=== PATIENT | female | born 1930 | race Caucasian/White ===

== ENCOUNTER 2017-01-04 17:08 | Emergency (ER) | payer OTHER, BC ==
[~2017-01-04] VITALS: Ht 154.9 cm; Wt 85.9 kg
[~2017-01-04 17:08] MED LIST: ACYCLOVIR400 MG PO; ACYCLOVIR800 MG PO; ADVAIR 250/501 DISK IH; ALBUTEROL2.5 MG/3 M IH; Advair 250/50 Diskus IH; Aspirin E.C. PO; BENICAR40 MG PO; Benicar HCT 40/25 PO; CICLESONIDE; CYANOCOBALAM1000 MCG PO; Cardizem PO; Coumadin,Jantoven PO; DILTIAZEM ER90 MG PO; Decadron PO; ELIQUIS2.5 MG PO; FUROSEMIDE20 MG PO; Fish Oil PO; HYDROCHLOROTHIA25 MG PO; LATANOPROST2.5 ML BOTH EYES; LOVENOX30 MG/0.3 SC; Lasix PO; METRO CREAM 0.745 GM TP; MONTELUKAST SOD10 MG PO; OMNARIS12.5 GM BOTH NARES; OMNARIS12.5 GM IH; ONDANSETRON HCL4 MG PO; ONDANSETRON ODT4 MG PO; PANTOPRAZOLE SO40 MG PO; PEPCID20 MG PO; PERCOCET 5/31 TABLET PO; PROCHLORPERAZIN10 MG PO; PROVENTIL,2.5 MG/0.5 IH; PROZAC10 MG PO; PROZAC20 MG PO; Pyridoxine,Vitamin B PO; REVLIMID25 MG PO; Singulair PO; VENTOLIN HFA18 GM IH; VITAMIN B-6100 MG PO; Xalatan 0.005% Ophth; ZOFRAN ODT8 MG PO
[2017-01-04 17:42] LABS: BASOPHIL COUNT 0.1 K/uL (0-0.1); EOSINOPHIL (%) 1.3 % (0-5); EOSINOPHIL COUNT 0.1 K/uL (0-0.3); HEMATOCRIT 31.9 % (36.0-46.0); IMMATURE GRANULOCYTE (%) 1.3 % (0.0-0.7); IMMATURE GRANULOCYTE COUNT 0.1 K/uL; INSTRUMENT ABS NEUTROPHIL CT 3.3 K/uL; LYMPHOCYTE COUNT 0.6 K/uL (1.0-2.8); MCH 33.1 PG (29.0-34.0); MCHC 33.9 G/DL (30.0-36.0); MEAN PLAT.VOLUME 9.4 uM^3 (9.5-12.4); MONOCYTE (%) 10.5 % (3-12); MONOCYTE COUNT 0.5 K/uL (0-0.8); NEUTROPHIL (%) 72.8 % (45-76); NEUTROPHIL COUNT 3.3 K/uL (1.8-6.4); PLATELET COUNT 178 K/uL (156-360); RBC DIS.WIDTH-CV 14.1 % (11.8-14.6); RBC DIS.WIDTH-SD 49.8 % (39-53); RED BLOOD COUNT 3.26 M/uL (3.80-5.20); WHITE BLOOD COUNT 4.5 K/uL (4.1-10.2)
[2017-01-04 17:43] LABS: MCV 97.9 FL (83-99)
[2017-01-04 17:49] LABS: INTER. NORMALIZED RATIO 1.1; PROTHROMBIN TIME 12.5 SEC (10.2-12.9)
[2017-01-04 17:55] LABS: CHLORIDE 107 mEq/L (99-109); POTASSIUM 4.5 mEq/L (3.7-5.4); SODIUM 140 mEq/L (136-147)
[2017-01-04 17:57] LABS: GLUCOSE 97 mg/dL (70-99)
[2017-01-04 17:59] LABS: ANION GAP 9 MEQ/L (2-14); TOTAL BILIRUBIN 0.6 mg/dL (0.0-1.0)
[2017-01-04 18:01] LABS: ALKALINE PHOSPHATASE 96 IU/L (3-129); GFR ESTIMATE (CALCULATED) 41 mL/min/
[2017-01-04 18:02] LABS: UREA NITROGEN (BUN) 13 mg/dL (9-23)
[2017-01-04 18:08] LABS: TROP-I INTERPRETATION NEGATIVE; TROPONIN-I 0.02 ng/mL (0.0-0.30)
[2017-01-04 19:53] LABS: ADD MIUA? YES; BILIRUBIN NEGATIVE; BLOOD NEGATIVE; COLOR YELLOW ((YELLOW)); GLUCOSE (STRIP) NEGATIVE; KETONES 5; LEUKOCYTES NEGATIVE; NITRITE NEGATIVE; PROTEIN (STRIP) 100; SPECIFIC GRAVITY 1.019 (1.000-1.030)
[2017-01-04 20:37] LABS: BACTERIA 1+ /HPF; EPITHELIAL CELLS 3+ /HPF; HYALINE CASTS 30-40 /LPF; MUCUS TRACE /LPF; RED BLOOD CELLS 0-5 /HPF (0-5); UCUL ADDED? NO; WHITE BLOOD CELLS 0-5 /HPF (0-5)
[2017-01-04] MEDS ORDERED: REGLAN10 MG PO (22:02)
[2017-01-04 22:09] VITALS: BP 182/66
== END 2017-01-04 22:15 | disposition home or self-care (01) ==
LOC: EME 17:08
PROVIDERS: Emergency Medicine
DX: R51 Headache (principal); R11.0 Nausea; R53.1 Weakness; C90.00 Multiple myeloma not having achieved remission; J44.9 Chronic obstructive pulmonary disease, unspecified; J45.909 Unspecified asthma, uncomplicated; I12.9 Hypertensive chronic kidney disease with stage 1 through stage 4 chronic kidney disease, or unspecified chronic kidney disease; N18.9 Chronic kidney disease, unspecified; Z90.49 Acquired absence of other specified parts of digestive tract; Z87.891 Personal history of nicotine dependence; Z79.01 Long term (current) use of anticoagulants
CPT/HCPCS: 70450; 71020; 80053; 81003; 84484; 85025; 85610; 93005; 99281; 99285; J2405; J2765; J7040

== ENCOUNTER 2017-08-04 14:20 | Inpatient (IN) | payer OTHER, BC ==
[2017-08-04] VITALS (7 sets, daily range): BP systolic 174–196; BP diastolic 54–73
[~2017-08-04] VITALS: Ht 154.9 cm; Wt 87.6 kg
[~2017-08-04 14:20] MED LIST changes: +REGLAN10 MG PO
[2017-08-04 15:12] LABS: HEMATOCRIT 29.9 % (36.0-46.0); HEMOGLOBIN 9.9 G/DL (11.9-15.5); MCH 33.4 PG (29.0-34.0); MCHC 33.1 G/DL (30.0-36.0); PLATELET COUNT 134 K/uL (156-360); RBC DIS.WIDTH-CV 15.8 % (11.8-14.6); RBC DIS.WIDTH-SD 58.7 % (39-53); RED BLOOD COUNT 2.96 M/uL (3.80-5.20); WHITE BLOOD COUNT 11.1 K/uL (4.1-10.2)
[2017-08-04 15:19] LABS: ALBUMIN 3.4 g/dL (3.2-4.8); CHLORIDE 113 mEq/L (99-109); POTASSIUM 4.5 mEq/L (3.7-5.4); SODIUM 144 mEq/L (136-147)
[2017-08-04 15:21] LABS: GLUCOSE 97 mg/dL (70-99)
[2017-08-04 15:22] LABS: TOTAL PROTEIN 5.5 g/dL (6.4-8.3)
[2017-08-04 15:23] LABS: TOTAL BILIRUBIN 0.4 mg/dL (0.0-1.0)
[2017-08-04 15:26] LABS: ALKALINE PHOSPHATASE 99 IU/L (3-129); CREATININE 1.8 mg/dL (0.6-1.3); GFR ESTIMATE (CALCULATED) 28 mL/min/; UREA NITROGEN (BUN) 40 mg/dL (9-23)
[2017-08-04 15:27] LABS: AST (GOT) 47 IU/L (2-34)
[2017-08-04 15:28] LABS: ALT (GPT) 142 IU/L (3-49)
[2017-08-04 15:32] LABS: INTER. NORMALIZED RATIO 1.3; TROP-I INTERPRETATION NEGATIVE; TROPONIN-I 0.02 ng/mL (0.0-0.30)
[2017-08-04 15:34] LABS: PTT 23.9 SEC (25-37)
[2017-08-04] MEDS ORDERED: PROZAC40 MG PO (17:44)
[2017-08-04] MEDS ORDERED: REVLIMID25 MG PO (17:45)
[2017-08-04] MEDS ORDERED: DECADRON4 MG PO (17:47)
[2017-08-04] MEDS ORDERED: OLMESARTAN MEDO20 MG PO (17:49)
[2017-08-04] MEDS ORDERED: ZOFRAN ODT4 MG PO (17:53)
[2017-08-04] MEDS ORDERED: FLUOXETINE HCL40 MG PO (18:02)
[2017-08-04 20:55] LABS: TROP-I INTERPRETATION NEGATIVE; TROPONIN-I 0.03 ng/mL (0.0-0.30)
[2017-08-05] VITALS (24 sets, daily range): BP systolic 0–174; BP diastolic 0–72
[2017-08-05 02:16] LABS: TROP-I INTERPRETATION NEGATIVE; TROPONIN-I 0.02 ng/mL (0.0-0.30)
[2017-08-05 06:01] LABS: CHLORIDE 110 MEQ/L (99-109); CREATININE 2.1 MG/DL (0.6-1.3); GFR ESTIMATE (CALCULATED) 24 mL/min/; GLUCOSE 122 mg/dL (70-99); POTASSIUM 4.4 MEQ/L (3.7-5.4); SODIUM 142 MEQ/L (136-147); UREA NITROGEN (BUN) 53 mg/dL (9-23)
[2017-08-05 13:09] LABS: HEMATOCRIT 28.4 % (36.0-46.0); HEMOGLOBIN 9.1 G/DL (11.9-15.5); MCH 32.5 PG (29.0-34.0); MCV 101.4 FL (83-99); PLATELET COUNT 120 K/uL (156-360); RBC DIS.WIDTH-CV 16.1 % (11.8-14.6); RBC DIS.WIDTH-SD 60.3 % (39-53); WHITE BLOOD COUNT 7.2 K/uL (4.1-10.2)
[2017-08-05 13:36] LABS: ALBUMIN 3.1 G/DL (3.2-4.8); ALKALINE PHOSPHATASE 72 IU/L (3-129); ALT (GPT) 105 IU/L (3-49); AST (GOT) 25 IU/L (2-34); CHLORIDE 108 MEQ/L (99-109); CREATININE 2.1 MG/DL (0.6-1.3); GFR ESTIMATE (CALCULATED) 24 mL/min/; GLUCOSE 105 mg/dL (70-99); MAGNESIUM 1.7 mg/dl (1.3-2.7); PHOSPHORUS 4.1 mg/dL (2.5-4.9); POTASSIUM 4.4 MEQ/L (3.7-5.4); SODIUM 143 MEQ/L (136-147); TOTAL BILIRUBIN 0.6 MG/DL (0.0-1.0); TOTAL PROTEIN 4.6 G/DL (6.4-8.3); UREA NITROGEN (BUN) 54 mg/dL (9-23)
[2017-08-05 14:05] LABS: THYROTROPIN (TSH) 0.84 MIU/L (0.4-5.5)
[2017-08-06] VITALS (16 sets, daily range): BP systolic 138–179; BP diastolic 46–110
[2017-08-06 14:13] LABS: BASOPHIL (%) 0.1 % (0-1); EOSINOPHIL (%) 3.5 % (0-5); EOSINOPHIL COUNT 0.3 K/uL (0-0.3); HEMATOCRIT 28.6 % (36.0-46.0); HEMOGLOBIN 9.2 G/DL (11.9-15.5); IMMATURE GRANULOCYTE (%) 0.7 % (0.0-0.7); LYMPHOCYTE (%) 10.8 % (15-42); LYMPHOCYTE COUNT 0.8 K/uL (1.0-2.8); MCH 32.4 PG (29.0-34.0); MCHC 32.2 G/DL (30.0-36.0); MCV 100.7 FL (83-99); MONOCYTE (%) 8.9 % (3-12); MONOCYTE COUNT 0.6 K/uL (0-0.8); NEUTROPHIL COUNT 5.5 K/uL (1.8-6.4); PLATELET COUNT 103 K/uL (156-360); RBC DIS.WIDTH-CV 15.9 % (11.8-14.6); RBC DIS.WIDTH-SD 59.4 % (39-53); RED BLOOD COUNT 2.84 M/uL (3.80-5.20); WHITE BLOOD COUNT 7.2 K/uL (4.1-10.2)
[2017-08-06 14:33] LABS: CHLORIDE 109 MEQ/L (99-109); CREATININE 1.9 MG/DL (0.6-1.3); GFR ESTIMATE (CALCULATED) 27 mL/min/; GLUCOSE 123 mg/dL (70-99); MAGNESIUM 1.6 mg/dl (1.3-2.7); PHOSPHORUS 4.1 mg/dL (2.5-4.9); POTASSIUM 4.2 MEQ/L (3.7-5.4); SODIUM 144 MEQ/L (136-147); UREA NITROGEN (BUN) 57 mg/dL (9-23)
[2017-08-07] VITALS (18 sets, daily range): BP systolic 0–189; BP diastolic 0–76
[2017-08-07 05:19] LABS: BASOPHIL (%) 0.2 % (0-1); EOSINOPHIL (%) 4.1 % (0-5); EOSINOPHIL COUNT 0.3 K/uL (0-0.3); HEMOGLOBIN 9.4 G/DL (11.9-15.5); IMMATURE GRANULOCYTE (%) 0.8 % (0.0-0.7); LYMPHOCYTE (%) 10.8 % (15-42); LYMPHOCYTE COUNT 0.7 K/uL (1.0-2.8); MCH 32.8 PG (29.0-34.0); MCHC 32.4 G/DL (30.0-36.0); MONOCYTE (%) 9.8 % (3-12); MONOCYTE COUNT 0.6 K/uL (0-0.8); NEUTROPHIL (%) 74.3 % (45-76); NEUTROPHIL COUNT 4.7 K/uL (1.8-6.4); PLATELET COUNT 96 K/uL (156-360); RBC DIS.WIDTH-CV 15.9 % (11.8-14.6); RBC DIS.WIDTH-SD 58.8 % (39-53); RED BLOOD COUNT 2.87 M/uL (3.80-5.20); WHITE BLOOD COUNT 6.3 K/uL (4.1-10.2)
[2017-08-07 05:28] LABS: INTER. NORMALIZED RATIO 1.2
[2017-08-07 05:31] LABS: PTT 24.3 SEC (25-37)
[2017-08-07 05:41] LABS: CHLORIDE 109 MEQ/L (99-109); CREATININE 1.9 MG/DL (0.6-1.3); GFR ESTIMATE (CALCULATED) 27 mL/min/; GLUCOSE 114 mg/dL (70-99); POTASSIUM 4.2 MEQ/L (3.7-5.4); SODIUM 141 MEQ/L (136-147); UREA NITROGEN (BUN) 52 mg/dL (9-23)
[2017-08-08] VITALS (16 sets, daily range): BP systolic 0–181; BP diastolic 0–80
[2017-08-09] VITALS (8 sets, daily range): BP systolic 101–150; BP diastolic 51–87
[2017-08-09] MEDS ORDERED: CLONIDINE HCL0.1 MG PO (17:02)
[2017-08-09] MEDS ORDERED: NITROSTAT0.4 MG SL (17:02)
[2017-08-09] MEDS ORDERED: FUROSEMIDE20 MG PO (17:02)
== END 2017-08-09 18:40 | disposition home or self-care (01) | DRG 243 ==
LOC: EME 14:20 → 4WEST 16:41 → EDOF 16:41 → ENRESERV 16:41 → 4EAST 18:08 → ENRESERV 18:40 → 4WEST 18:43 → CANRESERV 08-08 09:50 → ENRESERV 08-08 09:50 → 4WEST 08-08 18:06
PROVIDERS: Emergency Medicine; Internal Medicine; Obstetrics & Gynecology; Surgery
DX: I44.2 Atrioventricular block, complete (principal); C90.00 Multiple myeloma not having achieved remission; I50.9 Heart failure, unspecified; I13.0 Hypertensive heart and chronic kidney disease with heart failure and stage 1 through stage 4 chronic kidney disease, or unspecified chronic kidney disease; N17.9 Acute kidney failure, unspecified; Z68.41 Body mass index [BMI] 40.0-44.9, adult; R00.1 Bradycardia, unspecified; I48.91 Unspecified atrial fibrillation; J44.9 Chronic obstructive pulmonary disease, unspecified; D64.9 Anemia, unspecified; D69.6 Thrombocytopenia, unspecified; E78.5 Hyperlipidemia, unspecified; E66.9 Obesity, unspecified; N18.2 Chronic kidney disease, stage 2 (mild); E86.0 Dehydration; K21.9 Gastro-esophageal reflux disease without esophagitis; Z95.0 Presence of cardiac pacemaker; Z87.891 Personal history of nicotine dependence; Z86.711 Personal history of pulmonary embolism; Z79.01 Long term (current) use of anticoagulants
CPT/HCPCS: 71045; 71046; 80048; 80053; 82330; 83735; 83880; 84100; 84443; 84484; 85025; 85027; 85610; 85730; 87641; 93005; 93306; 94640; 94640 76; 94760; 94799; 99202; 99281; 99285; C1753; C1892; C1894; C1898; J0360; J0690; J1644; J1940; J2250; J3010; J8540; S0020